=== PATIENT | male | born 2000 | race Caucasian/White ===

== ENCOUNTER 2022-04-05 16:39 | Outpatient (CLI) | payer OTHER ==
--- NOTE | 2022-04-05 17:02 | XRAY Report ---
PROCEDURE: Wrist 4 View LT INDICATIONS: L WRIST PX TECHNIQUE: 4 views of the wrist were acquired. COMPARISON: None FINDINGS: Bones: No fractures or dislocations. No suspicious bony lesions. Scaphoid view: Normal Soft tissues: No suspicious soft tissue calcifications. IMPRESSION: No acute abnormality of the left wrist. Reviewed by: Bear Sainz on 04/05/2022 5:01 PM [facility] Approved by: Bear Sainz on 04/05/2022 5:01 PM [facility] Station ID: [id number]
== END 2022-04-05 23:59 | disposition home or self-care (01) ==
LOC: DI.N 16:39
PROVIDERS: ATTEND Family Medicine
DX: M25.532 Pain in left wrist (principal)